=== PATIENT | female | born 1995 | race Caucasian/White ===

== ENCOUNTER 2018-08-19 17:30 | Emergency (ER) | payer SELFPAY | END 2018-08-19 17:35 | disposition left against medical advice (07) | LOC: ER 17:30 | DX: S99.829A Other specified injuries of unspecified foot, initial encounter (principal); Z53.21 Procedure and treatment not carried out due to patient leaving prior to being seen by health care provider; X58.XXXA Exposure to other specified factors, initial encounter; Y93.89 Activity, other specified; Y92.89 Other specified places as the place of occurrence of the external cause; Y99.8 Other external cause status ==

== ENCOUNTER 2018-09-14 | Emergency (ER) | payer OTHER ==
[~2018-09-14] VITALS: Ht 167.6 cm; Wt 97.5 kg
[2018-09-14 00:13] VITALS: BP 151/63
--- NOTE | 2018-09-14 01:51 | PHYS DOC ---
Past Medical History Past Medical History: Asthma Past Surgical History: Additional Past Surgical Histo: LEFT ELBOW Alcohol Use: None Drug Use: None Adult General Chief Complaint Chief Complaint: ANKLE PROBLEM HPI HPI Patient is a 23 year old [f__sex] who presents with [] Review of Systems Review of Systems Constitutional: Denies fever or chills [] Eyes: Denies change in visual acuity, redness, or eye pain [] HENT: Denies nasal congestion or sore throat [] Respiratory: Denies cough or shortness of breath [] Cardiovascular: No additional information not addressed in HPI [] GI: Denies abdominal pain, nausea, vomiting, bloody stools or diarrhea [] : Denies dysuria or hematuria [] Musculoskeletal: Denies back pain or joint pain [] Integument: Denies rash or skin lesions [] Neurologic: Denies headache, focal weakness or sensory changes [] Endocrine: Denies polyuria or polydipsia [] All other systems were reviewed and found to be within normal limits, except as documented in this note. Allergies Allergies Allergies Coded Allergies Type Severity Reaction Last Updated Verified iodine Allergy Unknown ANAPHALAXIS 09/14/18 Yes naproxen Allergy Unknown ANAPHALAXIS 09/14/18 Yes shellfish derived Allergy Unknown ANAPHALAXIS 09/14/18 Yes Physical Exam Physical Exam Constitutional: Well developed, well nourished, no acute distress, non-toxic appearance. [] HENT: Normocephalic, atraumatic, bilateral external ears normal, oropharynx moist, no oral exudates, nose normal. [] Eyes: PERRLA, EOMI, conjunctiva normal, no discharge. [] Neck: Normal range of motion, no tenderness, supple, no stridor. [] Cardiovascular:Heart rate regular rhythm, no murmur [] Lungs & Thorax: Bilateral breath sounds clear to auscultation [] Abdomen: Bowel sounds normal, soft, no tenderness, no masses, no pulsatile masses. [] Skin: Warm, dry, no erythema, no rash. [] Back: No tenderness, no CVA tenderness. [] Extremities: No tenderness, no cyanosis, no clubbing, ROM intact, no edema. [] Neurologic: Alert and oriented X 3, normal motor function, normal sensory function, no focal deficits noted. [] Psychologic: Affect normal, judgement normal, mood normal. [] Current Patient Data Vital Signs Vital Signs Date Time Temp Pulse Resp B/P (MAP) Pulse Ox O2 Delivery O2 Flow Rate FiO2 09/14/18 00:13 98.0 76 20 151/63 (92) 100 Room Air 98.0 EKG EKG [] Radiology/Procedures Radiology/Procedures [] Course & Med Decision Making Course & Med Decision Making Pertinent Labs and Imaging studies reviewed. (See chart for details) [] Dragon Disclaimer Dragon Disclaimer This electronic medical record was generated, in whole or in part, using a voice recognition dictation system. Departure Departure Impression: Primary Impression: Ankle sprain Disposition: HOME, SELF-CARE Condition: STABLE Referrals: UNKNOWN PCP NAME (PCP) ROSELIA CHARLES MD Patient Instructions: Ankle Sprain, [id number], Crutch Use, [id number] Additional Instructions: Use over the counter Tylenol and Ibuprofen for pain or discomfort. Problem Qualifiers Primary Impression: Ankle sprain Encounter type: initial encounter Involved ligament of ankle: unspecified ligament Laterality: right Qualified Codes: S93.401A - Sprain of unspecified ligament of right ankle, initial encounter GERMAIN PAUL DO Sep 14, 2018 01:51
--- NOTE | 2018-09-14 03:48 | RAD ---
ANKLE RIGHT 3V 09/14/2018 1:32 AM INDICATION: Twisted and fell COMPARISON: Left ankle radiograph June 25, 2010 TECHNIQUE: 3 views of the left ankle are provided. FINDINGS: There is no acute fracture or dislocation. Remote healed lateral malleolar fracture. Tibial plafond and talar dome are intact. Bone mineralization is within normal limits. Joint spaces are maintained. Regional soft tissues are within normal limits. There is no soft tissue gas or osseous erosion. IMPRESSION: No acute fracture or dislocation. Electronically signed by: Carla Dela Cruz MD (09/14/2018 3:45 AM) [facility]
== END 2018-09-14 02:00 | disposition home or self-care (01) ==
LOC: ER
DX: S93.401A Sprain of unspecified ligament of right ankle, initial encounter (principal); J45.909 Unspecified asthma, uncomplicated; Z88.5 Allergy status to narcotic agent; Z91.013 Allergy to seafood; Z88.8 Allergy status to other drugs, medicaments and biological substances; W18.39XA Other fall on same level, initial encounter; Y92.89 Other specified places as the place of occurrence of the external cause; Y99.8 Other external cause status; Y93.89 Activity, other specified
CPT/HCPCS: 73610; 99284

== ENCOUNTER 2018-10-19 17:18 | Emergency (ER) | payer OTHER ==
[~2018-10-19] VITALS: Ht 170.2 cm; Wt 99.8 kg
[2018-10-19 18:01] LABS: BILIRUBIN,URINE NEGATIVE (NEG); CLARITY,URINE TURBID; COLOR,URINE YELLOW; NITRITE,URINE NEGATIVE (NEG); PROTEIN,URINE NEGATIVE (NEG-TRACE); UROBILINOGEN,URINE 0.2 mg/dL (0.2 mg/dL)
[2018-10-19 18:07] LABS: BARBITURATES NEG (NEG); BENZODIAZEPINES NEG (NEG); CANNABINOIDS NEG (NEG); COCAINE NEG (NEG); METHADONE NEG (NEG); OPIATES NEG (NEG); PHENCYCLIDINE NEG (NEG)
[2018-10-19 18:09] LABS: AMPHETAMINE/METHAMPHETAMINE NEG (NEG)
[2018-10-19 18:18] LABS: AMORPHOUS SEDIMENT,UR PRESENT /HPF; BACTERIA,URINE 0 /HPF (0-FEW); RBC,URINE 0 /HPF (0-2); SQUAMOUS EPITHELIAL CELL,UR MANY /LPF; WBC,URINE 0 /HPF (0-4)
[2018-10-19 18:44] LABS: BASO % 1 % (0-3); EOS % 0 % (0-3); HEMOGLOBIN 11.7 g/dL (12.0-15.5); LYMPH # 1.1 x10^3/uL (1.0-4.8); LYMPH % 20 % (24-48); MEAN CORPUSCULAR HEMOGLOBIN 27 pg (25-35); MEAN CORPUSCULAR HGB CONC 33 g/dL (31-37); MEAN CORPUSCULAR VOLUME 82 fL (79-100); MONO # 0.3 x10^3/uL (0.0-1.1); MONO % 6 % (0-9); NEUT % 73 % (31-73); PLATELET COUNT 166 x10^3/uL (140-400); RED BLOOD COUNT 4.29 x10^6/uL (3.50-5.40); RED CELL DISTRIBUTION WIDTH 14.7 % (11.5-14.5); WHITE BLOOD COUNT 5.4 x10^3/uL (4.0-11.0)
[2018-10-19 19:17] LABS: ALBUMIN 3.5 g/dL (3.4-5.0); ALBUMIN/GLOBULIN RATIO 0.9 (1.0-1.7); CREATININE 0.6 mg/dL (0.6-1.0); POTASSIUM 3.6 mmol/L (3.5-5.1); TOTAL BILIRUBIN 0.4 mg/dL (0.2-1.0); TOTAL PROTEIN 7.6 g/dL (6.4-8.2)
[2018-10-19 19:20] VITALS: BP 145/75
--- NOTE | 2018-10-19 20:09 | RAD ---
Exam: Ultrasound OB less than 14 weeks Indication: Vaginal bleeding Technique: Real-time grayscale and color Doppler images of the pelvis were obtained by the department spray painter helper. Comparisons: None FINDINGS: Uterus measures 10.6 x 9.4 x 7.4 cm. Within the uterus there is a gestational sac with pole and yolk sac. heart rate is measured at 173 bpm. Question second echogenic focus within the gestational sac. On the left measured at 2.4 cm. Right ovary measures 3.8 x 2.6 x 2.5 cm. Left ovary measures 2.8 x 3.0 x 1.9 cm. Vascular flow noted within the ovaries bilaterally. IMPRESSION: 1. Single live intrauterine gestation of 9 weeks and 1 day by current ultrasound. Correlate with LMP. 2. Question second echogenic area within the gestational sac which may represent twin . Short-term follow-up ultrasound in 10-14 days is recommended for reevaluation. Electronically signed by: Abby Lopez MD (10/19/2018 8:06 PM) [facility]
[2018-10-19] MEDS ORDERED: CEPH500C PO (21:06)
--- NOTE | 2018-10-19 21:06 | PHYS DOC ---
Past Medical History Past Medical History: Asthma (ANDREE TOMAS APRN) Past Surgical History: Additional Past Surgical Histo: LEFT ELBOW (ANDREE TOMAS APRN) Alcohol Use: None Drug Use: None (ANDREE TOMAS APRN) Adult General Chief Complaint Chief Complaint: VAGINAL BLEEDING [facility] HPI Patient is a 23 year old female 4 para 2, 1 , currently 9 weeks who presents to the ED today complaining of vaginal bleeding specifical ly spotting that began yesterday. Patient states it only occurs when she wiped herself after voiding. Denies any abdominal pain, denies any nausea vomiting. Patient states she was seen at [facility] yesterday and they noted her beta hCG was elevated, she states she did not wait for her ultrasound. At some point she states she was informed she could have a molar . She states she's already been seen by her own [facility] and has had 2 previous ultrasounds which were normal. (ANDREE TOMAS APRN) Review of Systems Review of Systems Constitutional: Denies fever or chills [] Eyes: Denies change in visual acuity, redness, or eye pain [] HENT: Denies nasal congestion or sore throat [] Respiratory: Denies cough or shortness of breath [] Cardiovascular: No additional information not addressed in HPI [] GI: Reports vaginal bleeding in . Denies abdominal pain, nausea, vomiting, bloody stools or diarrhea [] : Denies dysuria or hematuria [] Musculoskeletal: Denies back pain or joint pain [] Integument: Denies rash or skin lesions [] Neurologic: Denies headache, focal weakness or sensory changes [] All other systems were reviewed and found to be within normal limits, except as documented in this note. (ANDREE TOMAS APRN) Allergies Allergies Allergies Coded Allergies Type Severity Reaction Last Updated Verified iodine Allergy Unknown ANAPHALAXIS 09/14/18 Yes naproxen Allergy Unknown ANAPHALAXIS 09/14/18 Yes shellfish derived Allergy Unknown ANAPHALAXIS 09/14/18 Yes (GERMAIN PAUL DO) Physical Exam Physical Exam Constitutional: Well developed, well nourished, no acute distress, non-toxic appearance. [] HENT: Normocephalic, atraumatic, bilateral external ears normal, oropharynx moist, no oral exudates, nose normal. [] Eyes: PERRLA, EOMI, conjunctiva normal, no discharge. [] Neck: Normal range of motion, no tenderness, supple, no stridor. [] Cardiovascular:Heart rate regular rhythm, no murmur [] Lungs & Thorax: Bilateral breath sounds clear to auscultation [] Abdomen: Bowel sounds normal, soft, no tenderness, no masses, no pulsatile masses. [] Pelvic exam-External pelvic appears normal, cervix is visualized, closed, no CMT, trace amount of spotting noted in the vaginal vault. No adnexal tenderness Skin: Warm, dry, no erythema, no rash. [] Back: No tenderness, no CVA tenderness. [] Extremities: No tenderness, no cyanosis, no clubbing, ROM intact, no edema. [] Neurologic: Alert and oriented X 3, normal motor function, normal sensory function, no focal deficits noted. [] Psychologic: Affect normal, judgement normal, mood normal. [] (ANDREE TOMAS APRN) Current Patient Data Vital Signs Vital Signs Date Time Temp Pulse Resp B/P (MAP) Pulse Ox O2 Delivery O2 Flow Rate FiO2 10/19/18 19:20 64 14 145/75 (98) 98 Room Air 10/19/18 17:25 98.5 98.5 (GERMAIN PAUL DO) Lab Values Laboratory Tests Test 10/19/18 17:25 10/19/18 17:40 10/19/18 18:20 Urine Collection Type Unknown Urine Color Yellow Urine Clarity Turbid Urine pH 6.0 Urine Specific [place] >=1.030 Urine Protein Negative mg/dL (NEG-TRACE) Urine Glucose (UA) Negative mg/dL (NEG) Urine Ketones (Stick) Trace mg/dL (NEG) Urine Blood Negative (NEG) Urine Nitrite Negative (NEG) Urine Bilirubin Negative (NEG) Urine Urobilinogen Dipstick 0.2 mg/dL (0.2 mg/dL) Urine Leukocyte Esterase Moderate (NEG) Urine RBC 0 /HPF (0-2) Urine WBC 0 /HPF (0-4) Urine Squamous Epithelial Cells Many /LPF Urine Amorphous Sediment Present /HPF Urine Bacteria 0 /HPF (0-FEW) Urine Mucus Marked /LPF Urine Opiates Screen Neg (NEG) Urine Methadone Screen Neg (NEG) Urine Barbiturates Neg (NEG) Urine Phencyclidine Screen Neg (NEG) Urine Amphetamine/Methamphetamine Neg (NEG) Urine Benzodiazepines Screen Neg (NEG) Urine Cocaine Screen Neg (NEG) Urine Cannabinoids Screen Neg (NEG) Urine Ethyl Alcohol Neg (NEG) POC Urine HCG, Qualitative Hcg positive (Negative) White Blood Count 5.4 x10^3/uL (4.0-11.0) Red Blood Count 4.29 x10^6/uL (3.50-5.40) Hemoglobin 11.7 g/dL (12.0-15.5) L Hematocrit 35.0 % (36.0-47.0) L Mean Corpuscular Volume 82 fL (79-100) Mean Corpuscular Hemoglobin 27 pg (25-35) Mean Corpuscular Hemoglobin Concent 33 g/dL (31-37) Red Cell Distribution Width 14.7 % (11.5-14.5) H Platelet Count 166 x10^3/uL (140-400) Neutrophils (%) (Auto) 73 % (31-73) Lymphocytes (%) (Auto) 20 % (24-48) L Monocytes (%) (Auto) 6 % (0-9) Eosinophils (%) (Auto) 0 % (0-3) Basophils (%) (Auto) 1 % (0-3) Neutrophils # (Auto) 4.0 x10^3/uL (1.8-7.7) Lymphocytes # (Auto) 1.1 x10^3/uL (1.0-4.8) Monocytes # (Auto) 0.3 x10^3/uL (0.0-1.1) Eosinophils # (Auto) 0.0 x10^3/uL (0.0-0.7) Basophils # (Auto) 0.0 x10^3/uL (0.0-0.2) Maternal Serum HCG Beta Subunit 208034 mIU/mL (0-5) H Sodium Level 139 mmol/L (136-145) Potassium Level 3.6 mmol/L (3.5-5.1) Chloride Level 103 mmol/L (98-107) Carbon Dioxide Level 23 mmol/L (21-32) Anion Gap 13 (6-14) Blood Urea Nitrogen 10 mg/dL (7-20) Creatinine 0.6 mg/dL (0.6-1.0) Estimated GFR (Cockcroft-Gault) 125.0 BUN/Creatinine Ratio 17 (6-20) Glucose Level 89 mg/dL (70-99) Calcium Level 9.0 mg/dL (8.5-10.1) Total Bilirubin 0.4 mg/dL (0.2-1.0) Aspartate Amino Transferase (AST) 12 U/L (15-37) L Alanine Aminotransferase (ALT) 32 U/L (14-59) Alkaline Phosphatase 75 U/L (46-116) Total Protein 7.6 g/dL (6.4-8.2) Albumin 3.5 g/dL (3.4-5.0) Albumin/Globulin Ratio 0.9 (1.0-1.7) L Ethyl Alcohol Level < 10 mg/dL (0-10) Laboratory Tests 10/19/18 18:20 Laboratory Tests 10/19/18 18:20 Microbiology 10/19/18 Wet Prep - Final, Complete (GERMAIN PAUL DO) EKG EKG [] (ANDREE TOMAS APRN) Radiology/Procedures Radiology/Procedures []PROCEDURE: OB <14 WKS W/TV Exam: Ultrasound OB less than 14 weeks Indication: Vaginal bleeding Technique: Real-time grayscale and color Doppler images of the pelvis were obtained by the department labor training manager. Comparisons: None FINDINGS: Uterus measures 10.6 x 9.4 x 7.4 cm. Within the uterus there is a gestational sac with pole and yolk sac. heart rate is measured at 173 bpm. Question second echogenic focus within the gestational sac. On the left measured at 2.4 cm. Right ovary measures 3.8 x 2.6 x 2.5 cm. Left ovary measures 2.8 x 3.0 x 1.9 cm. Vascular flow noted within the ovaries bilaterally. IMPRESSION: 1. Single live intrauterine gestation of 9 weeks and 1 day by current ultrasound. Correlate with LMP. 2. Question second echogenic area within the gestational sac which may represent twin . Short-term follow-up ultrasound in 10-14 days is recommended for reevaluation. Electronically signed by: Abby Yap MD (10/19/2018 8:06 PM) [facility] DICTATED and SIGNED BY: ABBY YAP MD DATE: 10/19/182005 (ANDREE TOMAS APRN) Course & Med Decision Making Course & Med Decision Making Pertinent Labs and Imaging studies reviewed. (See chart for details) This is a 23-year-old female patient who presents to the ED today complaining of vaginal bleeding in , she is a 4 para 2 with one currently 9 weeks . Symptoms began yesterday. He was seen at [facility] and she states she did not wait for the ultrasound. Beta hCG from the paperwork she has from [facility] is 125,338. CBC, CMP-no acute findings. Pelvic exam noted for spotting, wet prep noted for altered larry but no clue cells. She reports her blood group is O+ Beta hcg 155,108 Urine noted for moderate amount of leukocytes but appears grossly contaminated. She will be d/c on Cephalaxin OB ultrasound noted for-Single live intrauterine gestation of 9 weeks and 1 day by current ultrasound. Correlate with LMP. 2. Question second echogenic area within the gestational sac which may represent twin . Short-term follow-up ultrasound in 10-14 days is recommended for reevaluation. Above results were discussed with patient and . She does have an [facility], F/u on Sunday. Pelvic rest recommended. (ANDREE TOMAS APRN) Dragon Disclaimer Dragon Disclaimer This electronic medical record was generated, in whole or in part, using a voice recognition dictation system. (ANDREE TOMAS APRN) Departure Departure Impression: Primary Impression: Threatened miscarriage Additional Impression: UTI (urinary tract infection) Disposition: HOME, SELF-CARE Condition: STABLE Referrals: UNKNOWN PCP NAME (PCP) follow up with your OBGYN on Sunday Patient Instructions: Threatened Miscarriage, Urinary Tract Infection Additional Instructions: You were evaluated in the medicine for vaginal bleeding in please maintain pelvic rest including no sexually, until seen by your [facility]. Your beta hCG today was 155,108. Your urine was noted for infection we put you on antibiotics please complete them. As discussed follow-up with the [facility] especially for the ultrasound findings. Scripts Cephalexin (CEPHALEXIN) 500 Mg Capsule 1 CAP PO BID, #14 CAP Prov: ANDREE TOMAS APRN 10/19/18 Attending Signature Attending Signature I have reviewed the PA/STAKE SETTER's note and plan of care. I was available for consultation as needed during the patient's visit in the emergency department. I agree with the clinical impression, plan, and disposition. (GERMAIN PAUL DO) Problem Qualifiers Additional Impression: UTI (urinary tract infection) Urinary tract infection type: site unspecified Hematuria presence: without hematuria Qualified Codes: N39.0 - Urinary tract infection, site not specified ANDREE TOMAS APRN Oct 19, 2018 21:06 GERMAIN PAUL DO Oct 20, 2018 04:42
[2018-10-21 23:07] LABS: GC PROBE Negative (Negative)
== END 2018-10-19 21:12 | disposition home or self-care (01) ==
LOC: ER 17:18
DX: O20.0 Threatened abortion (principal); O23.41 Unspecified infection of urinary tract in pregnancy, first trimester; O99.511 Diseases of the respiratory system complicating pregnancy, first trimester; J45.909 Unspecified asthma, uncomplicated; Z88.5 Allergy status to narcotic agent; Z91.013 Allergy to seafood; Z88.8 Allergy status to other drugs, medicaments and biological substances; Z3A.09 9 weeks gestation of pregnancy
CPT/HCPCS: 36415; 76801; 76817; 80053; 80307; 81001; 81025; 84702; 85025; 87086; 87491; 87591; 99285; G0480; Q0111

== ENCOUNTER 2019-07-19 22:58 | Emergency (ER) | payer OTHER ==
[~2019-07-19] VITALS: Ht 170.2 cm; Wt 97.7 kg
[~2019-07-19 22:58] MED LIST: CEPH500C PO
[2019-07-19 23:10] VITALS: BP 150/67
--- NOTE | 2019-07-19 23:49 | PHYS DOC ---
Past Medical History Past Medical History: Asthma Past Surgical History: Additional Past Surgical Histo: LEFT ELBOW Smoking Status: Never Smoker Alcohol Use: None Drug Use: None General Adult EDM: Chief Complaint: KNEE INJURY HPI: HPI: Patient is a 24 year old female who presents with complaint of left knee pain after twisting her knee about 6 hours ago. Patient states that she has injured that knee in the past and she states that it feels very similar to that time. She denies any other injuries. She indicates that it just feels like the knee wants to give out on her. She rates pain as moderate especially with weightbearing.[] Review of Systems: Review of Systems: Constitutional: Denies fever or chills. [] Respiratory: Denies cough or shortness of breath. [] Cardiovascular: Denies chest pain or edema. [] Musculoskeletal: Positive left knee pain. [] Integument: Denies rash. [] Neurologic: Denies headache, focal weakness or sensory changes. [] Heart Score: Risk Factors: Risk Factors: DM, Current or recent (<one month) smoker, HTN, HLP, family history of CAD, obesity. Risk Scores: Score 0 - 3: 2.5% MACE over next 6 weeks - Discharge Home Score 4 - 6: 20.3% MACE over next 6 weeks - Admit for Clinical Observation Score 7 - 10: 72.7% MACE over next 6 weeks - Early Invasive Strategies Allergies: Allergies: Allergies Coded Allergies Type Severity Reaction Last Updated Verified iodine Allergy Unknown ANAPHALAXIS 09/14/18 Yes naproxen Allergy Unknown ANAPHALAXIS 09/14/18 Yes shellfish derived Allergy Unknown ANAPHALAXIS 09/14/18 Yes Physical Exam: PE: Constitutional: Well developed, well nourished, no acute distress, non-toxic appearance. [] Cardiovascular:Heart rate regular rhythm, no murmur [] Lungs & Thorax: Bilateral breath sounds clear to auscultation [] Extremities: Examination of left knee demonstrates medial joint line tenderness on the posterior aspect, overlying the posterior horn of medial meniscus. No ligamentous laxity is noted on exam. [] Neurologic: Alert and oriented X 3, no focal deficits noted. [] EKG: EKG: [] Radiology/Procedures: Radiology/Procedures: [] Impression: PROCEDURE: KNEE LEFT 3V KNEE 3 VIEWS LEFT Clinical Indication: Twisted knee. Comparison: Left knee, 2 views 01/28/2011. Findings: There is no acute fracture or dislocation. The tricompartmental joint spaces are maintained. The patella is in anatomic position. There is no soft tissue abnormality. There is no appreciable joint effusion. IMPRESSION: No acute fracture. Electronically signed by: Ezequiel Campos MD (07/19/2019 11:55 PM) [id number] Course & Med Decision Making: Course & Med Decision Making Pertinent Labs and Imaging studies reviewed. (See chart for details) [] Dragon Disclaimer: Dragon Disclaimer: This electronic medical record was generated, in whole or in part, using a voice recognition dictation system. Departure Departure Impression: Primary Impression: Sprain of left knee Qualified Codes: S83.92XA - Sprain of unspecified site of left knee, initial encounter Disposition: 01 HOME, SELF-CARE Condition: STABLE Referrals: UNKNOWN PCP NAME (PCP) Patient Instructions: Knee - Cartilage (Meniscus) Injury, Knee Sprain Scripts Ibuprofen (IBUPROFEN) 600 Mg Tablet 600 MG PO PRN Q6HRS PRN for INFLAMMATION, #30 TAB Prov: GUALBERTO LAMAR Jr. DO 07/20/19 GUALBERTO LAMAR Jr. DO July 19, 2019 23:49
--- NOTE | 2019-07-19 23:58 | RAD ---
KNEE 3 VIEWS LEFT Clinical Indication: Twisted knee. Comparison: Left knee, 2 views 01/28/2011. Findings: There is no acute fracture or dislocation. The tricompartmental joint spaces are maintained. The patella is in anatomic position. There is no soft tissue abnormality. There is no appreciable joint effusion. IMPRESSION: No acute fracture. Electronically signed by: Ezequiel Campos MD (07/19/2019 11:55 PM) [id number]
[2019-07-20] MEDS ORDERED: IBUP-1007 PO (00:13)
== END 2019-07-20 00:27 | disposition home or self-care (01) ==
LOC: ER 22:58
DX: S83.92XA Sprain of unspecified site of left knee, initial encounter (principal); J45.909 Unspecified asthma, uncomplicated; Z88.5 Allergy status to narcotic agent; Z91.013 Allergy to seafood; Z88.8 Allergy status to other drugs, medicaments and biological substances; X50.9XXA Other and unspecified overexertion or strenuous movements or postures, initial encounter; Y93.89 Activity, other specified; Y92.89 Other specified places as the place of occurrence of the external cause; Y99.8 Other external cause status
CPT/HCPCS: 29505; 73562; 99283

== ENCOUNTER 2020-03-27 19:11 | Emergency (ER) | payer OTHER ==
[~2020-03-27] VITALS: Ht 167.6 cm; Wt 112.5 kg
[~2020-03-27 19:11] MED LIST changes: +IBUP-1007 PO
[2020-03-27 19:34] VITALS: BP 130/77
--- NOTE | 2020-03-27 20:04 | PHYS DOC ---
Past Medical History Past Medical History: Asthma Past Surgical History: Additional Past Surgical Histo: LEFT ELBOW Smoking Status: Never Smoker Alcohol Use: None Drug Use: None General Adult EDM: Chief Complaint: LOWER BACK PAIN OR INJURY HPI: HPI: Patient is a 25 year old female with history of hypertension who presents to the ED today complaining of 7 out of 10 right low back pain radiating to bilat eral lower extremities as well as tingling to bilateral lower extremities and tingling to bilateral upper extremities, symptoms began 2 days ago after she fell down 3 steps. Patient denies any loss of consciousness when she fell. Denies hitting her head. She states she did not even hit her body on the stair case. Denies any loss of bowel/bladder function. She states her pain is worse on touching her right low back as well as certain movements. She states she has had slight neck pain but not that concerning. She states her numbness and tingling to bilateral upper and lower extremities are intermittent. Denies any hematuria. Review of Systems: Review of Systems: Constitutional: Denies fever or chills. [] Eyes: Denies change in visual acuity. [] HENT: Denies nasal congestion or sore throat. [] Respiratory: Denies cough or shortness of breath. [] Cardiovascular: Denies chest pain or edema. [] GI: Denies abdominal pain, nausea, vomiting, bloody stools or diarrhea. [] : Denies dysuria. [] Musculoskeletal: Reports low back pain, neck pain, tingling to bilateral upper and lower extremities Integument: Denies rash. [] Neurologic: Denies headache, focal weakness or sensory changes. [] Psychiatric: Denies depression or anxiety. [] Heart Score: Risk Factors: Risk Factors: DM, Current or recent (<one month) smoker, HTN, HLP, family history of CAD, obesity. Risk Scores: Score 0 - 3: 2.5% MACE over next 6 weeks - Discharge Home Score 4 - 6: 20.3% MACE over next 6 weeks - Admit for Clinical Observation Score 7 - 10: 72.7% MACE over next 6 weeks - Early Invasive Strategies Allergies: Allergies: Allergies Coded Allergies Type Severity Reaction Last Updated Verified iodine Allergy Unknown ANAPHALAXIS 09/14/18 Yes naproxen Allergy Unknown ANAPHALAXIS 09/14/18 Yes shellfish derived Allergy Unknown ANAPHALAXIS 09/14/18 Yes Physical Exam: PE: Constitutional: Well developed, well nourished, no acute distress, non-toxic appearance. [] HENT: Normocephalic, atraumatic, bilateral external ears normal, oropharynx moist, no oral exudates, nose normal. [] Eyes: PERRLA, EOMI, conjunctiva normal, no discharge. [] Neck: Normal range of motion, no tenderness, supple, no stridor. [] Cardiovascular:Heart rate regular rhythm, no murmur [] Lungs & Thorax: Bilateral breath sounds clear to auscultation [] Abdomen: Bowel sounds normal, soft, no tenderness, no masses, no pulsatile masses. [] Skin: Warm, dry, no erythema, no rash. [] Back: Diffuse paraspinal muscle tenderness bilateral lumbar spine, no midline lumbar spine tenderness, no CVA tenderness. [] Extremities: No tenderness, no cyanosis, no clubbing, ROM intact, no edema. [] Neurologic: Alert and oriented X 3, normal motor function, normal sensory function, no focal deficits noted. Cranial nerves II through XII intact Psychologic: Affect normal, judgement normal, mood normal. [] Current Patient Data: Vital Signs: Vital Signs Date Time Temp Pulse Resp B/P (MAP) Pulse Ox O2 Delivery O2 Flow Rate FiO2 03/27/20 19:34 98.7 93 18 130/77 (94) 99 Room Air 98.7 EKG: EKG: [] Radiology/Procedures: Radiology/Procedures: [] PATIENT: ARIELA FERRO ACCOUNT: [id number] : 1995 LOCATION: ER AGE: 25 SEX: F EXAM STATUS: REG ER ORD. PHYSICIAN: ANDREE TOMAS APRN REASON: fall numbness to fingers PROCEDURE: CERVICAL SPINE 2-3V Lumbar spine 2 views, cervical spine 3 views. HISTORY: Fall 2 days ago, back pain, numbness to fingers Lumbar spine AP and lateral views were taken the lumbar spine. Disc spaces are normal in height. A fracture is not identified. There is slight scoliosis which could be positional or muscle spasm. Lumbar spines in normal alignment on the lateral view. An acute fracture is not identified. Patient's had a cholecystectomy. IMPRESSION: 1. Slight scoliosis which could be positional. 2. No acute fracture noted in the lumbar spine End impression CT C-spine AP, lateral, odontoid and swimmers views were taken of the cervical spine. C- spine is in normal alignment. Disc spaces are normal in height. An acute C-spine fracture is not identified. C7-T1 is in normal alignment on the swimmers view. Odontoid is intact on the open mouth view. MRI could be of benefit to evaluate for potential disc protrusion. IMPRESSION: 1. C-spine is in normal alignment. 2. An acute fracture is not identified. Electronically signed by: Neymar Georges MD (03/27/2020 8:40 PM) [facility] DICTATED and SIGNED BY: NEYMAR GEORGES MD DATE: 03/27/[id number] 0 Course & Med Decision Making: Course & Med Decision Making Pertinent Labs and Imaging studies reviewed. (See chart for details) This is a 25-year-old female patient presenting to the ED today with right low back pain radiating to bilateral lower extremities with tingling to bilateral lower extremities as well as tingling to bilateral upper extremities as well as slight neck pain after falling down 3 steps 2 days ago. Patient has no cauda equina syndrome symptoms. Patient has no midline cervical or lumbar spine tenderness. Cervical spine x- rays as well as lumbar spine x-rays interpreted by radiologist are negative for any acute findings, discharged on Medrol Dosepak, cyclobenzaprine and gabapentin. Follow-up with PCP next week. Zulema Disclaimer: Zulema Disclaimer: This electronic medical record was generated, in whole or in part, using a voice recognition dictation system. Departure Departure Impression: Primary Impression: Fall down steps Qualified Codes: W10.8XXA - Fall (on) (from) other stairs and steps, initial encounter Additional Impressions: Low back pain Qualified Codes: M54.5 - Low back pain Sciatica, right side Sciatica, left side Cervical radiculopathy, acute Disposition: 01 DC HOME SELF CARE/HOMELESS Condition: STABLE Referrals: UNKNOWN PCP NAME (PCP) follow up with your doctor next week Patient Instructions: Back Pain, Adult, [id number], Cervical Radiculopathy, [id number] Additional Instructions: You were evaluated in the emergency room, your x-ray of the cervical spine as well as lumbar spine xrays are negative for any acute findings. Please follow- up with your primary care doctor in the course of next week. Take the prescribed medications as ordered. Scripts Methylprednisolone (MEDROL) 4 Mg Tab.ds.pk 1 PKG PO UD, #1 PKG Prov: ANDREE TOMAS [employer] OFFICER 03/27/20 Cyclobenzaprine Hcl (CYCLOBENZAPRINE HCL) 10 Mg Tablet 1 TAB PO TID, #30 TAB Prov: ANDREE TOMAS [employer]OURCE OFFICER 03/27/20 Gabapentin (Gabapentin) 300 Mg Capsule 300 MG PO TID, #30 CAP Prov: ANDREE TOMAS [employer]OURCE OFFICER 03/27/20 ANDREE TOMAS APRN Mar 27, 2020 20:04
--- NOTE | 2020-03-27 20:44 | RAD ---
Lumbar spine 2 views, cervical spine 3 views. HISTORY: Fall 2 days ago, back pain, numbness to fingers Lumbar spine AP and lateral views were taken the lumbar spine. Disc spaces are normal in height. A fracture is not identified. There is slight scoliosis which could be positional or muscle spasm. Lumbar spines in no rmal alignment on the lateral view. An acute fracture is not identified. Patient's had a cholecystect master. IMPRESSION: 1. Slight scoliosis which could be positional. 2. No acute fracture noted in the lumbar spine End impression CT C-spine AP, lateral, odontoid and swimmers views were taken of the cervical spine. C-spine is in normal align ment. Disc spaces are normal in height. An acute C-spine fracture is not identified. C7-T1 is in norm al alignment on the swimmers view. Odontoid is intact on the open mouth view. MRI could be of benefit to evaluate for potential disc protrusion. IMPRESSION: 1. C-spine is in normal alignment. 2. An acute fracture is not identified. Electronically signed by: Neymar Tao MD (03/27/2020 8:40 PM) [facility]
[2020-03-27] MEDS ORDERED: CYCL10TA2 PO (20:54)
[2020-03-27] MEDS ORDERED: METH4TAB2 PO (20:54)
[2020-03-27] MEDS ORDERED: GABA300C9 PO (20:54)
== END 2020-03-27 21:52 | disposition home or self-care (01) ==
LOC: ER 19:11
DX: M54.42 Lumbago with sciatica, left side (principal); M54.41 Lumbago with sciatica, right side; M54.12 Radiculopathy, cervical region; J45.909 Unspecified asthma, uncomplicated; G89.11 Acute pain due to trauma; Z88.5 Allergy status to narcotic agent; Z91.013 Allergy to seafood; Z88.8 Allergy status to other drugs, medicaments and biological substances; W10.8XXA Fall (on) (from) other stairs and steps, initial encounter; Y93.89 Activity, other specified; Y92.89 Other specified places as the place of occurrence of the external cause; Y99.8 Other external cause status
CPT/HCPCS: 72040; 72100; 99284